=== PATIENT | male | born 1995 | race Caucasian/White ===

== ENCOUNTER 2018-12-28 18:45 | Emergency (ER) | payer SELFPAY ==
[2018-12-28] MEDS ORDERED: NACL 0.9% 1000 ML 1,000 ML IV ONE ×3 (18:55→20:39)
[2018-12-28] MEDS ORDERED: ZOFRAN IV ONE (18:58)
[2018-12-28] MEDS ORDERED: SUBLIMAZE IV ONE (18:58)
[2018-12-28] MEDS ORDERED: NACL 0.9% 1000 ML 1,000 ML ONE (18:58)
--- NOTE | 2018-12-28 18:59 | Emergency Department Report ---
HPI - General Chief Complaint: Weakness Time Seen by Provider: 12/28/18 18:54 - HPI HPI: Room 22 The patient is a 23-year-old male presented with a chief complaint of total body cramping. Patient was reportedly working outdoors in the heat when he developed diffuse body cramping. Patient attempted to drink Pedialyte but it did not help. Has been no history of nausea vomiting. Patient denies other complaints Location: [See above] Duration: [See above] Quality: [See above] Severity: [See above] Modifying factors: [see above] Context: [see above] Mode of transportation: [not driving] ED Past Medical Hx - Past Medical History Previous Medical History?: No - Surgical History Past Surgical History?: No - Family History Family history: no significant - Social History Smoking Status: Never Smoker Substance Use Type: None ED Review of Systems ROS: Stated complaint: DEHYDRATION Other details as noted in HPI Musculoskeletal: myalgia Physical Exam - Physical Exam Physical Exam: GENERAL: The patient is well-developed well-nourished male lying on stretcher appearing to be in mild discomfort. [] HEENT: Normocephalic. Atraumatic. Extraocular motions are intact. CHEST/LUNGS: Clear to auscultation. There is no respiratory distress noted. HEART/CARDIOVASCULAR: Regular. There is tachycardia. There is no gallop rub or murmur. ABDOMEN: Abdomen is soft, nontender. Patient has normal bowel sounds. There is no abdominal distention. SKIN: There is no rash. There is no edema. There is no diaphoresis. NEURO: The patient is awake, alert, and oriented. The patient is cooperative. The patient has normal speech MUSCULOSKELETAL: There is no evidence of acute injury. ED Course - Reevaluation(s) Reevaluation #1: 12/28/18 20:40 Patient states he feels better and currently has no complaints ED Medical Decision Making - Lab Data Result diagrams: 12/28/18 19:02 12/28/18 19:02 - Differential Diagnosis dehydration, heat exhaustion, electrolyte imbalance, rhabdomyolysis Critical care attestation.: If time is entered above; I have spent that time in minutes in the direct care of this critically ill patient, excluding procedure time. ED Disposition Clinical Impression: Dehydration, Hypomagnesemia Disposition: DC-01 TO HOME OR SELFCARE Is pt being admited?: No Does the pt Need Aspirin: No Condition: Stable Instructions: Dehydration (ED) Additional Instructions: Return to the emergency department immediately should you develop worsening symptoms, fever, inability to tolerate food or liquid or any other concerns. Referrals: [facility] [Outside] - 3-5 Days Time of Disposition: 21:19
[2018-12-28 19:42] LABS: Basophils # (Auto) 0.1 K/mm3 (0.0-0.1); Basophils % (Auto) 0.8 % (0.0-1.8); Eosinophils % (Auto) 0.2 % (0.0-4.3); Hematocrit 40.9 % (35.5-45.6); Hemoglobin 14.2 gm/dl (11.8-15.2); Lymphocytes # (Auto) 1.4 K/mm3 (1.2-5.4); Lymphocytes % (Auto) 15.2 % (13.4-35.0); Mean Corpuscular HGB Conc 35 % (32-34); Mean Corpuscular Volume 93 fl (84-94); Monocytes # (Auto) 0.7 K/mm3 (0.0-0.8); Monocytes % (Auto) 8.2 % (0.0-7.3); Platelet Count 336 K/mm3 (140-440); Red Cell Distribution Width 13.9 % (13.2-15.2)
[2018-12-28 20:00] LABS: Alanine Aminotransferase 38 units/L (7-56); Albumin 4.6 g/dL (3.9-5); BUN/Creatinine Ratio 12; Blood Urea Nitrogen 7 mg/dL (9-20); Calcium 8.9 mg/dL (8.4-10.2); Hemolysis Index 15
[2018-12-28 21:14] VITALS: BP 128/82
[2018-12-28] MEDS ORDERED: MAGNESIUM SULFATE 2GM/50ML 2 GM/50 ML BAG IV ONE (21:17)
== END 2018-12-28 22:00 | disposition home or self-care (01) ==
LOC: ED 18:45
DX: E86.0 Dehydration (principal); E83.42 Hypomagnesemia
CPT/HCPCS: 36415; 80053; 82550; 83735; 85025; 93005; 93010; 96361; 96365; 96375; 99284; J2405; J3010; J3475; J7030

== ENCOUNTER 2019-02-22 20:35 | Observation (INO) | payer OTHER ==
[2019-02-23 00:22] LABS: Basophils # (Auto) 0.1 K/mm3 (0.0-0.1); Eosinophils % (Auto) 0.5 % (0.0-4.3); Lymphocytes # (Auto) 1.9 K/mm3 (1.2-5.4); Lymphocytes % (Auto) 34.8 % (13.4-35.0); Mean Corpuscular HGB Conc 36 % (32-34); Mean Corpuscular Volume 92 fl (84-94); Monocytes # (Auto) 0.5 K/mm3 (0.0-0.8); Monocytes % (Auto) 9.2 % (0.0-7.3); Platelet Count 390 K/mm3 (140-440); Red Blood Count 4.81 M/mm3 (3.65-5.03); Red Cell Distribution Width 13.1 % (13.2-15.2)
[2019-02-23 00:31] LABS: Hematocrit 44.1 % (35.5-45.6)
[2019-02-23 00:47] LABS: Alanine Aminotransferase 30 units/L (7-56); Albumin 4.9 g/dL (3.9-5); BUN/Creatinine Ratio 8; Blood Urea Nitrogen 5 mg/dL (9-20); Calcium 9.3 mg/dL (8.4-10.2); Hemolysis Index 19
[2019-02-23] MEDS ORDERED: NACL 0.9% 1000 ML 1,000 ML IV ONE (02:08)
--- NOTE | 2019-02-23 02:11 | Emergency Department Report ---
HPI - General Chief Complaint: Dyspnea/Respdistress Time Seen by Provider: 02/23/19 01:02 - HPI HPI: 23-year-old male presents to the emergency department with a complaint of some generalized chest pain, shortness of breath and palpitations going on for the past hour prior to presentation. Originally the patient started to elope but then came back saying that his symptoms had returned or worsened in that he wanted to be seen. No past medical history. He was here one time previously for dehydration and hypomagnesemia. Denies drug use. He may have had 1 or 2 days of recent drinking but they deny alcohol dependence. ED Past Medical Hx - Past Medical History Previous Medical History?: No - Surgical History Past Surgical History?: No - Social History Smoking Status: Never Smoker Substance Use Type: None - Medications Home Medications: Home Medications Medication Instructions Recorded Confirmed Last Taken Type No Known Home Medications [No 02/22/19 02/22/19 Unknown History Reported Home Medications] ED Review of Systems ROS: Stated complaint: SICK Other details as noted in HPI Comment: All other systems reviewed and negative Constitutional: denies: chills, fever Eyes: denies: eye pain, vision change ENT: denies: ear pain, throat pain Respiratory: shortness of breath. denies: cough Cardiovascular: chest pain, palpitations Gastrointestinal: denies: abdominal pain, vomiting Genitourinary: denies: dysuria, discharge Musculoskeletal: denies: back pain, arthralgia Skin: denies: rash, lesions Neurological: denies: headache, weakness Physical Exam - Physical Exam Vital Signs: Vital Signs 02/22/19 23:44 Temperature 98.5 F Pulse Rate 144 H Respiratory 32 H Rate Blood Pressure 132/94 [Right] O2 Sat by Pulse 100 Oximetry Physical Exam: GENERAL: The patient is ill-appearing. HENT: Normocephalic. Atraumatic. Patient has moist mucous membranes. EYES: Extraocular motions are intact. Pupils equal reactive to light bilaterally. NECK: Supple. Trachea is midline. CHEST/LUNGS: Clear to auscultation. There is tachypnea and some mild accessory muscle use. There is no respiratory distress noted. HEART/CARDIOVASCULAR: Regular. There is moderate tachycardia. There is no murmur. ABDOMEN: Abdomen is soft, nontender. Patient has normal bowel sounds. There is no abdominal distention. SKIN: Skin is warm and dry. NEURO: The patient is awake, alert, and cooperative. The patient has no focal neurologic deficits. The patient has normal speech. MUSCULOSKELETAL: There is no tenderness or deformity. There is no evidence of acute injury. ED Course Vital Signs 02/22/19 23:44 Temperature 98.5 F Pulse Rate 144 H Respiratory 32 H Rate Blood Pressure 132/94 [Right] O2 Sat by Pulse 100 Oximetry ED Medical Decision Making - Lab Data Result diagrams: 02/23/19 00:02 02/23/19 00:02 - EKG Data -: EKG Interpreted by Me (Sinus tach) EKG shows normal: sinus rhythm, axis, intervals, QRS complexes, ST-T waves Rate: tachycardia (106 bpm) - EKG Data When compared to previous EKG there are: previous EKG unavailable Interpretation: other (sinus tach. No STEMI) - Radiology Data Radiology results: image reviewed interpreted by me: Chest x-ray does not show any acute process. There are no pleural effusions, obvious pneumonia and there is no pneumothorax. - Medical Decision Making This patient presents with a complaint of some chest pain, shortness of breath and palpitations. In triage, the patient had a heart rate of 144 bpm. An EKG was done shortly afterwards and it had gone down to about 106. However there w ere multiple times during his ED course with the heart rate would jump up into the 140s, the patient would become diaphoretic, have some increased tachypnea, and require supplemental oxygen. Chest x-ray did not show any pleural effusions, pneumothorax, focal consolidation, pneumonia, or any other acute process. His EKG did not show any signs of ST elevation [place] or dysrhythmia. Patient denies any significant alcohol or drug use. However his urine drug screen is positive for methamphetamines and cocaine. Blood alcohol level came back at 0.15. His AST is slightly elevated when compared to the ALT, which makes me wonder if the patient may have some level of alcohol dependence and his symptoms could be secondary to some withdrawal. However, methamphetamine and cocaine use could also cause much of his symptoms. He still denies any alcohol dependence or drug use and it is possible that he could have been drugged. Nonetheless, given the patient's transient tachycardia and respiratory distress, he will be admitted to the hospital for further evaluation and treatment and was accepted for admission by the hospitalist, Dr. Nwozo. - Differential Diagnosis pneumonia, PE, polysubstance abuse, alcohol withdrawal Critical Care Time: No Critical care attestation.: If time is entered above; I have spent that time in minutes in the direct care of this critically ill patient, excluding procedure time. ED Disposition Clinical Impression: Dyspnea, Acute chest pain, Palpitations, Polysubstance abuse, Alcohol intoxication Disposition: OP ADMIT IP TO THIS HOSP Is pt being admited?: Yes Condition: Fair Instructions: Chest Pain (ED) Referrals: NORM BRISCOE MD [Primary Care Provider] - 3-5 Days Time of Disposition: 05:46
[2019-02-23] MEDS ORDERED: NACL 0.9% 1000 ML 1,000 ML ONE (02:13)
[2019-02-23] MEDS ORDERED: VITAMIN B-1 100 MG, FOLVITE 1 MG, INFUVITE 10 ML in NACL 0.9% 1000 ML 1,000 ML IV ONE (03:00)
[2019-02-23 03:37] LABS: Bilirubin,Urine NEG (Negative); Blood,Urine NEG (Negative); Color,Urine Yellow (Yellow); Mucus,Urine FEW /HPF; Protein,Urine <15 mg/dL mg/dL (Negative); Urobilinogen,Urine < 2.0 mg/dL (<2.0)
[2019-02-23 03:42] LABS: WBC,Urine < 1.0 /HPF (0.0-6.0)
[2019-02-23 03:44] LABS: Benzodiazepines Screen,Urine PRESUMPTIVE NEGATIVE; Cannabinoid Screen,Urine PRESUMPTIVE NEGATIVE; Methadone Screen,Urine PRESUMPTIVE NEGATIVE; Opiate Screen,Urine PRESUMPTIVE NEGATIVE
[2019-02-23 04:21] LABS: Amphetamine Screen,Urine PRESUMPTIVE POSITIVE; Cocaine Screen,Urine PRESUMPTIVE POSITIVE
[2019-02-23] MEDS ORDERED: ATIVAN IV PRN ×3 (05:08)
[2019-02-23] MEDS ORDERED: HALDOL IV PRN (05:08)
[2019-02-23] MEDS ORDERED: MORPHINE IV PRN (05:20)
[2019-02-23] MEDS ORDERED: NITROSTAT SL PRN (05:20)
[2019-02-23] MEDS ORDERED: TYLENOL PO PRN (05:21)
[2019-02-23] MEDS ORDERED: ZOFRAN IV PRN (05:21)
[2019-02-23] MEDS ORDERED: ZOFRAN ONE (05:41)
[2019-02-23] MEDS ORDERED: ATIVAN ONE (05:42)
[2019-02-23 05:57] LABS: Creatine Kinase MB 3.3 ng/mL (0.0-4.0)
[2019-02-23] MEDS: NITRO-BID 2% TP SCH ×4 (06:56→19:18)
[2019-02-23] MEDS ORDERED: LEXISCAN IV ONE ×3 (07:00→07:30)
[2019-02-23] MEDS ORDERED: HEPARIN SUB-Q SCH (10:00)
[2019-02-23] MEDS ORDERED: ASPIRIN PO SCH (10:00)
--- NOTE | 2019-02-23 10:05 | History and Physical Report ---
CHIEF COMPLAINT: Shortness of breath and chest pain. HISTORY OF PRESENT ILLNESS: The patient is a 23-year-old male who presented to the Emergency Room with generalized chest pain, shortness of breath and palpitation which was going on for hours prior to presentation. There was no history of diaphoresis. No history of nausea or vomiting and the patient also denied history of fever or cough and denied history of ingestion of any illicit drug or alcohol. PAST MEDICAL HISTORY: Pertinent for dehydration and hypomagnesemia. PAST SURGICAL HISTORY: Unremarkable. FAMILY HISTORY: Noncontributory. SOCIAL HISTORY: The patient denied smoking cigarettes, denied alcohol intake and denied use of illicit drugs. MEDICATIONS: The patient is not on any medication. ALLERGIES: There are no known drug allergies. REVIEW OF SYSTEMS: CONSTITUTIONAL: There is no fever, no chills, no diaphoresis. HEENT: There is no headache or sore throat. CARDIOVASCULAR SYSTEM: Chest pain is present. No orthopnea. RESPIRATORY SYSTEM: Shortness of breath is present. There is no cough. GASTROINTESTINAL SYSTEM: There is no nausea, no vomiting, no abdominal pain, diarrhea or constipation. NEUROLOGICAL SYSTEM: There is no numbness, no dizziness, no altered mental status. MUSCULOSKELETAL SYSTEM: There is no joint pain or swelling. DERMATOLOGICAL SYSTEM: There is no skin rash or itching. GENITOURINARY SYSTEM: There is no dysuria, hematuria, or flank pain. Rest of system review is normal. PHYSICAL EXAMINATION: GENERAL: At the time of exam, the patient was found to be alert, oriented x 3 and in mild distress due to chest pain and palpitation. VITAL SIGNS: At the initial time of presentation showed temperature of 98.5 degrees Fahrenheit, pulse of 144, respirations 32, blood pressure 132/94, O2 sat of 100% on room air. HEENT: Showed pupils to be equal, round, reactive to light and accommodating. Extraocular muscles are intact. NECK: Supple with no JVD or carotid bruit. CARDIOVASCULAR SYSTEM: Showed normal first and second heart sounds with no gallops or murmurs. RESPIRATORY SYSTEM: Showed good air entry on both sides of the lungs with no abnormal breath sounds. GASTROINTESTINAL SYSTEM: Showed abdomen to be full, soft, nontender with no organomegaly or rigidity. NEUROLOGIC: Showed no focal deficit. MUSCULOSKELETAL SYSTEM: Showed no joint swelling or tenderness. DERMATOLOGICAL SYSTEM: Showed no skin rash. GENITOURINARY SYSTEM: Showed no costovertebral angle tenderness. PERTINENT LABORATORY DATA AND IMAGING STUDIES: The patient had chest x-ray done, which was reported by the Emergency Room physician as unremarkable since chest x-ray and imaging studies are not posted today because of faulty equipment. Lab results, the patient's CBC showed normal white count, elevated hemoglobin of 16, normal hematocrit and normal MCV. The patient's CBC with differential showed high monocyte count of 9.2. The patient's coagulation studies are normal. The patient's blood gas shows high pH of 7.57, normal pCO2 and high pO2 of 265 with FiO2 of 100. The patient's chemistry is remarkable for elevated AST of 48 with normal ALT consistent with alcohol abuse and the patient's TSH level is high with a value of 7.79 and also the free T4 is high with a value of 1.70. The patient's urinalysis was unremarkable. Urine drug screen is positive for amphetamine, cocaine, and the patient's alcohol level is also high. DIAGNOSES: 1. Chest pain. 2. Polysubstance abuse involving alcohol, cocaine, and amphetamine. PLAN OF CARE: 1. The patient will be admitted to telemetry. 2. The patient will have serial cardiac enzymes involving troponin, total CK, and CK-MB checked every 6 hours x 2 more levels. 3. The patient will be on CIWA protocol using Ativan and Haldol. 4. The patient will be on IV morphine 2 mg every 3 hours as needed for pain and IV Zofran 4 mg every 8 hours for nausea and vomiting. 5. The patient will be n.p.o. for Lexiscan stress test this morning. 6. The patient will be on IV banana bag made up of thiamine 100 mg, 1 mg of folic acid, mixed with 1 amp of multivitamin and 2 g of magnesium sulfate in 1 liter of normal saline, which will run once a day at 250 mL an hour and subsequently the patient will be placed on normal saline at 125 mL an hour when the banana bag is done. 7. The patient will be on aspirin 325 mg by mouth daily and Tylenol 650 mg by mouth every 4 hours for fever and headache and will be on IV Zofran 4 mg every 8 hours for nausea and vomiting. 8. The patient will be on oxygen by nasal cannula, which will be titrated to keep O2 sat above 94%. 9. The patient will have Lexiscan stress test done this morning to rule out myocardial infarction or coronary artery disease. JOB# [id number] [facility]/FARIDA HUIZAR
[2019-02-23 12:40] LABS: Creatine Kinase MB 3.2 ng/mL (0.0-4.0)
--- NOTE | 2019-02-23 12:45 | Event Note ---
Date: 02/23/19 Stress test reviewed - negative for ischemia and infarct. Desiree Langley NP / Jazmín Hancock MD
[2019-02-23 15:06] VITALS: BP 129/73
--- NOTE | 2019-02-23 15:08 | Discharge Summary ---
Providers - Providers Date of Admission: 02/23/19 05:03 Date of discharge: 02/23/19 Attending physician: BENJAMIN LITTLE [facility] Hospitalization Condition: Stable Hospital course: Patient is 23 yo Bulgarian speaking man with a history of polysubstance abuse who presented with chest pains. Language line used Chest pains most likely costochronidritis with negative stress test. Polysubstance abuse: cocaine, meth and alcohol positive in UDS, counseling done Alcohol intoxication Disposition: DC-01 TO HOME OR SELFCARE Time spent for discharge: 36 minutes Core Measure Documentation - Palliative Care Palliative Care/ Comfort Measures: Not Applicable - Core Measures Any of the following diagnoses?: none - VTE Discharge Requirements Deep Vein Thrombosis/Pulmonary Embolism Present on Admission: No Has pt received <5 days of overlap therapy or INR<2.0: No Anticoagulant overlap therapy prescribed at discharge: No Contraindication No Overlap Therapy order at DC: Not Indicated Exam - Physical Exam Narrative exam: Gen: WDWN, NAD, Awake, Alert, Orientated HEENT: NCAT, EOMI, PERRL, OP Clear Neck: supple, no adenopathy, no thyromegaly, no JVD CVS/Heart: RRR, normal S1S2, pulses present bilaterally Chest/Lungs: CTA B, Symmetrical chest expansion, good air entry bilaterally, reproducible bilateral cw tenderness to touch GI/Abdomen: soft, NTND, good bowel sounds, no guarding or rebound /Bladder: no suprapubic tenderness, no CVA or paraspinal tenderness Extermity/Skin: no c/c/e, no obvious rash MSK: FROM x 4 Neuro: CN 2-12 grossly intact, no new focal deficits Psych: calm - Constitutional Vitals: Temp Pulse Resp BP Pulse Ox 97.6 F 79 18 126/65 99 02/23/19 08:37 02/23/19 11:52 02/23/19 08:37 02/23/19 11:52 02/23/19 13:56 Plan Activity: other (no strenous activity unless cleared by PCP) Diet: regular Special Instructions: smoking cessation Follow up with: NORM BRISCOE MD [Primary Care Provider] - 3-5 Days Prescriptions: Thiamine [Vitamin B-1] 100 mg PO QDAY #30 tablet
--- NOTE | 2019-02-24 00:58 | Treadmill Report ---
NUCLEAR CARDIAC IMAGING REPORT INDICATION FOR PROCEDURE: Chest pain. Informed consent was obtained. Rest and stress nuclear cardiac imaging were performed following the intravenous administration of technetium-99m Myoview per protocol. Vasodilator stress was achieved with the intravenous administration of 0.4 mg of Lexiscan per protocol. Images were acquired in a 180-degree arc from 45 degrees to 45 degrees LPO. After data acquisition and reconstruction, the images were processed and reoriented into the vertical long, horizontal long, and horizontal short axis slices. A polar color map of the horizontal short axis slices was generated and reviewed. The rotating planar images reviewed in cinematic format on the computer console. Gated SPECT imaging demonstrates a left ventricular ejection fraction post-stress of 72% with normal wall motion. Myocardial perfusion imaging demonstrates no significant cavity change between stress and rest. No significant stress induced perfusion defects are seen. Nuclear cardiac imaging demonstrates grossly normal post-stress left ventricular systolic function with no significant evidence for myocardial ischemia or necrosis. [facility]# [id number] PEDRO/FARIDA
[2019-02-24] MEDS ORDERED: VITAMIN B-1 100 MG, FOLVITE 1 MG, INFUVITE 10 ML in NACL 0.9% 1000 ML 1,000 ML IV ONE (06:00)
--- NOTE | 2019-02-24 15:03 | XRay Report ---
CHEST 2 VIEWS INDICATION: Acute shortness of breath for the past hour, tachycardia. COMPARISON: None FINDINGS: Support devices: None. Heart: Within normal limits. Lungs/pleura: No acute air space or interstitial disease. No pneumothorax. Additional findings: None. IMPRESSION: 1. No acute findings. Signer Name: Kevyn Platt MD Signed: 02/23/2019 12:42 AM Workstation Name: [id number]
== END 2019-02-23 19:31 | disposition home or self-care (01) ==
LOC: ED 20:35 → INTOOBSV 02-23 05:03 → 4A 02-23 05:03
PROVIDERS: ADMIT Internal Medicine; ATTEND Internal Medicine
DX: R07.89 Other chest pain (principal); F19.10 Other psychoactive substance abuse, uncomplicated; F10.129 Alcohol abuse with intoxication, unspecified; R00.2 Palpitations
CPT/HCPCS: 36415; 71046; 78452; 80053; 80307; 81001; 82550; 82553; 82803; 83735; 84439; 84443; 84484; 85025; 85379; 93005; 93010; 93017; 94760; 96365; 96366; 96372; 96375; 99284; A9502; G0378; J1644; J2060; J2405; J2785; J3411; J7030; 80320; G0480

== ENCOUNTER 2021-08-28 08:41 | Emergency (ER) | payer SELFPAY ==
[2021-08-28 09:09] VITALS: BP 142/86
[2021-08-28] MEDS ORDERED: KETOROLAC 30 MG/1 ML INJ IV ONE (09:26)
[2021-08-28] MEDS ORDERED: LORazepam 1 MG TAB PO ONE (09:26)
[2021-08-28 09:46] LABS: Basophils % (Auto) 0.7 % (0.0-1.8); Hematocrit 45.1 % (35.5-45.6); Hemoglobin 15.6 gm/dl (11.8-15.2); Lymphocytes % (Auto) 14.6 % (13.4-35.0); Mean Corpuscular HGB Conc 35 % (32-34); Mean Corpuscular Volume 89 fl (84-94); Monocytes # (Auto) 0.4 K/mm3 (0.0-0.8); Monocytes % (Auto) 5.5 % (0.0-7.3); Platelet Count 371 K/mm3 (140-440); Red Blood Count 5.07 M/mm3 (3.65-5.03); Red Cell Distribution Width 13.6 % (13.2-15.2)
[2021-08-28 09:56] LABS: Blood Urea Nitrogen 8 mg/dL (9-20); Calcium 9.5 mg/dL (8.4-10.2); Hemolysis Index 22
[2021-08-28 10:04] LABS: BUN/Creatinine Ratio 13
[2021-08-28] MEDS ORDERED: SODIUM CHLORIDE 0.9% 1000 ML 1,000 ML IV ONE (11:02)
[2021-08-28] MEDS ORDERED: ONDANSETRON 4 MG/2 ML INJ IV ONE (11:02)
== END 2021-08-28 13:01 | disposition home or self-care (01) ==
LOC: ED 08:41
DX: E86.0 Dehydration (principal); F10.20 Alcohol dependence, uncomplicated
CPT/HCPCS: 36415; 80048; 84484; 85025; 93005; 93010; 96361; 96374; 96375; 99283; J1885; J7030; Q0162